=== PATIENT | female | born 1985 | race American Indian/Alaskan Native ===

== ENCOUNTER 2018-07-22 20:08 | Emergency (ER) | payer BC ==
[2018-07-22] MEDS ORDERED: IBUPROFEN PO ONE (20:38)
[2018-07-22] MEDS ORDERED: NORCO 5/325 PO ONE (20:38)
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
[2018-07-22 21:38] LABS: HCG Qualitative,Urine Negative (Negative)
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
[2018-07-23 00:56] VITALS: BP 124/72
== END 2018-07-23 00:30 | disposition home or self-care (01) ==
LOC: ED 20:08
DX: S16.1XXA Strain of muscle, fascia and tendon at neck level, initial encounter (principal); M54.5 Low back pain; M25.512 Pain in left shoulder; V89.2XXA Person injured in unspecified motor-vehicle accident, traffic, initial encounter; Y93.89 Activity, other specified; Y92.410 Unspecified street and highway as the place of occurrence of the external cause; Y99.8 Other external cause status
CPT/HCPCS: 71046; 72040; 72100; 81025